=== PATIENT | male | born 1970 | race Caucasian/White ===

== ENCOUNTER 2017-08-08 13:50 | Emergency (ER) | payer MEDICAID ==
[~2017-08-08] VITALS: Ht 162.6 cm; Wt 68.9 kg
--- NOTE | 2017-08-08 13:50 | NUR ---
PATIENT TO ER BED 1
[2017-08-08 13:54] VITALS: BP 125/87
--- NOTE | 2017-08-08 14:07 | NUR ---
PATIENT PRESENTS TO ED WITH [place]---no injury, no incontinence denies change in meds---admits to having breakthrough seizures 2 /yr ] . DENIES N/V/D; SKIN IS PINK/WARM/DRY; AAOX4 LUNGS CLEAR BL; HR EVEN AND REGULAR; PT DENIES ANY FEVER, CP, SOB, OR COUGH AT THIS TIME; PATIENT STATES PAIN OF 4/10 AT THIS TIME; VSS; PATIENT POSITIONED FOR COMFORT; HOB ELEVATED; BEDRAILS UP X2; BED DOWN. ER MD MADE AWARE OF PT STATUS.
[2017-08-08] MEDS ORDERED: NACL 0.9% 1,000 ML IV ONE (14:15)
[2017-08-08 14:37] LABS: BASOPHILS % (AUTO) 0.4 % (0.0-2.0); EOSINOPHILS % (AUTO) 0.1 % (0.0-4.0); HEMATOCRIT 44.1 % (36-52); HEMOGLOBIN 14.9 g/dL (12.0-18.0); LYMPHOCYTES # (AUTO) 1.3 K/uL (2.0-11.5); LYMPHOCYTES % (AUTO) 15.7 % (20.5-51.1); MEAN CORPUSCULAR HEMOGLOBIN 30 pg (27-31); MEAN CORPUSCULAR HGB CONC 34 g/dL (33-37); MEAN CORPUSCULAR VOLUME 88.1 fL (80-94); MONOCYTES # (AUTO) 0.8 K/uL (0.8-1.0); MONOCYTES % (AUTO) 10.2 % (1.7-9.3); NEUTROPHILS % (AUTO) 73.6 % (42.2-75.2); PLATELET COUNT (AUTO) 282 K/uL (140-450); RED BLOOD CELL COUNT(AUTO) 5.01 MIL/uL (4.20-6.10); RED CELL DISTRIBUTION WIDTH 13.8 % (11.6-13.7); WHITE BLOOD COUNT (AUTO) 8.2 K/uL (4.8-10.8)
[2017-08-08 14:51] LABS: ALBUMIN 4.3 g/dL (3.4-5.0); ANION GAP 17.5 (8-16); ASPARTATE AMINOTRANSFERASE 22 U/L (15-37); CARBON DIOXIDE 22.8 mmol/L (21-32); CHLORIDE 102 mmol/L (98-107); CREATININE 1.1 mg/dL (0.7-1.3); GFR ARICAN-AMERICAN 93 mL/min (>90); GLUCOSE 88 mg/dL (74-106); POTASSIUM 4.3 mmol/L (3.5-5.1); SODIUM SERUM 138 mmol/L (136-145); TOTAL BILIRUBIN 0.3 mg/dL (0.0-1.0); UREA NITROGEN, BLOOD 18 mg/dL (7-18)
--- NOTE | 2017-08-08 15:00 | NUR ---
No adverse drug reaction to NACL IVF given to patient per er md order.
[2017-08-08 15:04] LABS: BARBITURATE, URINE NEG. ng/ml (NEG <=200); BENZODIAZEPINE, URINE NEG. ng/mL (NEG <=200); CANNABINOID, URINE NEG. ng/mL (NEG <=50); COCAINE, URINE NEG. ng/mL (NEG <=300); OPIATE, URINE NEG. ng/mL (NEG <=2000); PHENCYCLIDINE SCREEN,URINE NEG. ng/mL (NEG <=25)
[2017-08-08] MEDS ORDERED: LORazepam 2 MG/ML VIAL IVP ONE (15:10)
[2017-08-08 15:15] LABS: SALICYLATE < 2.8 mg/dL (2.8-20.0)
[2017-08-08 15:16] LABS: ACETAMINOPHEN < 0.5 ug/ml (10-30)
[2017-08-08] MEDS ORDERED: carBAMazepine 200 MG TAB PO ONE (15:25)
--- NOTE | 2017-08-08 15:50 | NUR ---
No adverse drug reaction to Ativan 2mg IVP and Tegretol 400 mg PO given to patient per er md order.
[2017-08-08 15:51] VITALS: BP 119/65
--- NOTE | 2017-08-08 15:51 | NUR ---
End Time of Sodium Chloride IVF. Total amount infused is 1000cc.
--- NOTE | 2017-08-08 15:51 | NUR ---
Patient discharged with v/s stable. Written and verbal after care instructions given and explained. Patient verbalized understanding. Ambulatory with steady gait. All questions addressed prior to discharge. Advised to follow up with PMD.
== END 2017-08-08 15:51 | disposition home or self-care (01) ==
LOC: MED 13:50
DX: R56.9 Unspecified convulsions (principal); Z88.8 Allergy status to other drugs, medicaments and biological substances
CPT/HCPCS: 36415; 71045; 80053; 80156; 80305; 85025; 96361; 96374; 99285; G0480; G0482; J2060; J7030